=== PATIENT | male | born 1950 | race Caucasian/White ===

== ENCOUNTER 2020-02-02 07:10 | Day surgery (SDC) | payer MEDICARE, OTHER ==
[2020-02-01 09:08] VITALS: BMI 30.4
[~2020-02-02 07:10] MED LIST: LACTATED RINGERS 1,000 ML IV SCH; LIDOCAINE 1% (10MG/ML) FOR IV START INTRADERMA PRN
[2020-02-02 07:29] VITALS: TEMP 97.3
[2020-02-02] MEDS ORDERED: LIDOCAINE 1% (10MG/ML) FOR IV START INTRADERMA ONE (07:35)
[2020-02-02 07:44] LABS: Glucose,Whole Blood 142 mg/dL (75-99)
[2020-02-02] MEDS ORDERED: PROPOFOL 10 MG/ML 20 ML VIAL IV ONE (08:20)
--- NOTE | 2020-02-02 09:22 | P.PCN ---
Date of Procedure: 02/02/20 Description of Procedure: BRIEF HISTORY: Patient is a 69-year-old male who presents for colonoscopy for evaluation of symptoms of diarrhea. Patient reports intermittent episodes of loose urgent bowel movements. Patient is on metformin. Last colonoscopy 2010 with polyps. PROCEDURE PERFORMED: Colonoscopy with polypectomy and biopsy. PREOPERATIVE DIAGNOSIS: Diarrhea, last colonoscopy 2010. ESTIMATED BLOOD LOSS: Minimal. IV sedation per Anesthesia. PROCEDURE: After informed consent was obtained, the patient, was brought into the endoscopy unit. IV sedation was administered by Anesthesia under continuous monitoring. Digital rectal examination was normal. Initially the Olympus pediatric flexible video colonoscope was then inserted in the rectum, gradually advanced into the cecum without any difficulty. Careful examination was performed as the scope was gradually being withdrawn. Ileocecal valve and the appendiceal orifice were visualized and appeared normal. Prep was excellent. Mucosa of the cecum, ascending colon, transverse colon, descending colon, sigmoid colon, and rectum appeared normal, with diverticular disease noted in the sigmoid colon which was fairly fixed and tortuous. Diminutive 2 mm transverse colon polyp removed with cold forcep polypectomy. Random biopsies taken of a normal-appearing terminal ileum as well as the right and left colon in the setting of altered bowel function. Retroflexion was performed in the rectum and no lesions were seen. The patient tolerated the procedure well. IMPRESSION: Diminutive transverse colon polyp removed with cold forcep polypectomy. Sigmoid diverticulosis. Otherwise normal-appearing colon from rectum to cecum a normal-appearing terminal ileum with random biopsies taken of the right colon, left colon and terminal ileum in the setting of diarrhea and altered bowel function. RECOMMENDATIONS: Findings of this examination were discussed with the patient and his . Okay to resume diet. Okay to resume medications. Follow-up in GI clinic in 1-2 weeks for results of biopsies and further management. Recommend repeat colonoscopy in 7 years for history of colon polyps..
[2020-02-02 09:55] VITALS: BP 135/80; PULSE 66
[2020-02-02 09:56] VITALS: RESP 17
== END 2020-02-02 10:00 | disposition home or self-care (01) ==
LOC: ORWHC2ENDO 07:10
PROVIDERS: ATTEND Internal Medicine
DX: D12.3 Benign neoplasm of transverse colon (principal); K57.30 Diverticulosis of large intestine without perforation or abscess without bleeding; Q43.8 Other specified congenital malformations of intestine; I10 Essential (primary) hypertension; E78.5 Hyperlipidemia, unspecified; E11.9 Type 2 diabetes mellitus without complications; Z79.84 Long term (current) use of oral hypoglycemic drugs; Z98.890 Other specified postprocedural states; Z79.899 Other long term (current) drug therapy; Z88.0 Allergy status to penicillin
CPT/HCPCS: 88305; 45380; J2704